=== PATIENT | male | born 1985 | race Two or more races ===

== ENCOUNTER 2017-05-29 14:51 | Inpatient (IN) | payer SELFPAY ==
[~2017-05-29] VITALS: Ht 180.3 cm; Wt 193.5 kg
[2017-05-29 16:50] LABS: Basophils # (auto) 0 uL; Basophils % (auto) 0.3 % (0.0-2.0); Eosinophils # (auto) 0 uL; Eosinophils % (auto) 0.1 % (0.0-7.0); Hemoglobin 13.8 g/dL (13.5-17.5); Lymphocytes % (auto) 18.1 % (10.0-50.0); Mean Corpuscular Hemoglobin 31.5 pg (28.0-32.0); Mean Corpuscular Hgb Conc. 33.5 g/dL (32.0-36.0); Mean Corpuscular Volume 93.8 fL (80.0-100.0); Mean Platelet Volume 8.5 fL (6.9-10.8); Monocytes # (auto) 0.9 uL; Monocytes % (auto) 5.6 % (0.0-12.0); Neutrophils # (auto) 12.4 uL; Neutrophils % (auto) 75.9 % (37.0-80.0); Platelet Count (auto) 219 10^3/uL (140-450); Red Cell Distribution Width 13.7 % (11.8-14.3); White Blood Cell 16.3 10^3/uL (4.4-10.8)
[2017-05-29 16:57] LABS: Albumin 3.6 g/dL (3.4-5.0); BUN/Creatinine Ratio 44.2; Calcium 8.2 mg/dL (8.5-10.1); Potassium 4.6 mmol/L (3.5-5.1)
[2017-05-29 17:00] LABS: Bilirubin, Total 0.5 mg/dL (0.2-1.0); Total Protein 7.5 g/dL (6.4-8.2)
[2017-05-29] MEDS ORDERED: SODIUM CHLORIDE 0.9% 1,000 ML IVB ONE (17:02)
[2017-05-29 17:32] LABS: Magnesium 2.1 mg/dL (1.6-2.6)
[2017-05-29 17:36] LABS: INR 0.96 (0.9-1.15); Partial Thromboplastin Time 24.3 sec (22.64-33.71); Prothrombin Time 10.5 sec (9.37-12.3)
[2017-05-29] MEDS ORDERED: SODIUM CHLORIDE 0.9% 500 ML IV ONE (20:00)
[2017-05-29] MEDS ORDERED: D5W/SOD CHLO 0.9% 1,000 ML IV SCH (20:00)
[2017-05-29 21:40] VITALS: BP 106/65
[2017-05-29 21:41] VITALS: BP 117/86
[2017-05-29] MEDS ORDERED: PANTOPRAZOLE 40 MG/10 ML VIAL IV ONE (21:46)
[2017-05-29 22:00] VITALS: BP 100/61
[2017-05-29] MEDS ORDERED: PANTOPRAZOLE 40 MG/10 ML VIAL IV SCH (22:00)
[2017-05-29] MEDS ORDERED: SODIUM CHLORIDE 0.9% 1,000 ML IV ONE (22:15)
[2017-05-29 22:39] LABS: Basophils # (auto) 0.1 uL; Basophils % (auto) 0.4 % (0.0-2.0); Eosinophils # (auto) 0 uL; Eosinophils % (auto) 0.3 % (0.0-7.0); Hematocrit 33.4 % (41.0-53.0); Hemoglobin 11.3 g/dL (13.5-17.5); Lymphocytes # (auto) 4.4 uL; Lymphocytes % (auto) 30.8 % (10.0-50.0); Mean Corpuscular Hemoglobin 31.6 pg (28.0-32.0); Mean Corpuscular Hgb Conc. 33.8 g/dL (32.0-36.0); Mean Corpuscular Volume 93.4 fL (80.0-100.0); Monocytes % (auto) 6.8 % (0.0-12.0); Neutrophils # (auto) 8.7 uL; Neutrophils % (auto) 61.7 % (37.0-80.0); Nucleated Red Blood Cells % 0.1 %; Platelet Count (auto) 194 10^3/uL (140-450); Red Cell Distribution Width 13.6 % (11.8-14.3); White Blood Cell 14.2 10^3/uL (4.4-10.8)
[2017-05-30] MEDS: SODIUM CHLORIDE 0.9% 1,000 ML IV SCH ×2 (00:54→11:50)
[2017-05-30 05:00] VITALS: BP 93/61
[2017-05-30 07:56] LABS: Basophils # (auto) 0 uL; Basophils % (auto) 0.4 % (0.0-2.0); Eosinophils # (auto) 0.1 uL; Eosinophils % (auto) 0.7 % (0.0-7.0); Hematocrit 30.1 % (41.0-53.0); Hemoglobin 10.4 g/dL (13.5-17.5); Lymphocytes # (auto) 3.3 uL; Mean Corpuscular Hemoglobin 32.3 pg (28.0-32.0); Mean Corpuscular Hgb Conc. 34.7 g/dL (32.0-36.0); Mean Corpuscular Volume 93.1 fL (80.0-100.0); Mean Platelet Volume 7.8 fL (6.9-10.8); Monocytes # (auto) 0.6 uL; Monocytes % (auto) 5.7 % (0.0-12.0); Neutrophils # (auto) 6.1 uL; Neutrophils % (auto) 60.2 % (37.0-80.0); Nucleated Red Blood Cells % 0.1 %; Platelet Count (auto) 175 10^3/uL (140-450); Red Cell Distribution Width 13.5 % (11.8-14.3); White Blood Cell 10.1 10^3/uL (4.4-10.8)
[2017-05-30 08:19] LABS: BUN/Creatinine Ratio 44.6; Calcium 7.5 mg/dL (8.5-10.1); Magnesium 2.1 mg/dL (1.6-2.6); Phosphorus 3.3 mg/dL (2.5-4.90)
[2017-05-30 09:00] VITALS: BP 102/55
[2017-05-30] MEDS ORDERED: PANTOPRAZOLE 40 MG/10 ML VIAL IV SCH (10:45)
[2017-05-30] MEDS: FAMOTIDINE (10MG/ML) 2ML VL IV SCH (10:49)
[2017-05-30] MEDS ORDERED: SODIUM CHLORIDE LOCK 10 ML ONE (11:57)
[2017-05-30] MEDS ORDERED: LIDOCAINE VISCOUS 2% 15ML UD ONE (11:57)
[2017-05-30] MEDS ORDERED: diphenhdrAMINE HCL 50 MG/1 ML VL ONE (11:58)
[2017-05-30] MEDS: MIDAZOLAM HCL 5 MG/ML-1ML VIAL ONE ×2 (12:06→12:10)
[2017-05-30] MEDS: fentaNYL CITRATE 100 MCG/2 ML VL ONE ×2 (12:06→12:10)
[2017-05-30 13:29] LABS: Hemoglobin 9.3 g/dL (13.5-17.5)
[2017-05-30 17:06] VITALS: BP 101/54
[2017-05-30 18:06] LABS: Hematocrit 25.5 % (41.0-53.0); Hemoglobin 8.9 g/dL (13.5-17.5)
[2017-05-30] MEDS: PANTOPRAZOLE 40 MG TAB PO SCH (21:31)
[2017-05-30 22:00] VITALS: BP 95/54
[2017-05-31] MEDS: SODIUM CHLORIDE 0.9% 1,000 ML IV SCH ×2 (02:21→15:59)
[2017-05-31 05:00] VITALS: BP_SYST 130; BP_SYST 95; BP_DIAS 53; BP_DIAS 82
[2017-05-31 07:01] LABS: BUN/Creatinine Ratio 28.6; Bilirubin, Total 0.3 mg/dL (0.2-1.0); Calcium 7.4 mg/dL (8.5-10.1); Potassium 3.8 mmol/L (3.5-5.1); Total Protein 5.6 g/dL (6.4-8.2)
[2017-05-31 08:05] LABS: Basophils # (auto) 0 uL; Basophils % (auto) 0.4 % (0.0-2.0); Eosinophils # (auto) 0.1 uL; Eosinophils % (auto) 0.8 % (0.0-7.0); Hematocrit 27.7 % (41.0-53.0); Hemoglobin 9.5 g/dL (13.5-17.5); Lymphocytes # (auto) 2.9 uL; Lymphocytes % (auto) 37.6 % (10.0-50.0); Mean Corpuscular Hemoglobin 32.4 pg (28.0-32.0); Mean Corpuscular Hgb Conc. 34.3 g/dL (32.0-36.0); Mean Corpuscular Volume 94.4 fL (80.0-100.0); Mean Platelet Volume 7.7 fL (6.9-10.8); Monocytes # (auto) 0.4 uL; Monocytes % (auto) 5.7 % (0.0-12.0); Neutrophils # (auto) 4.4 uL; Neutrophils % (auto) 55.5 % (37.0-80.0); Platelet Count (auto) 172 10^3/uL (140-450); Red Cell Distribution Width 13.3 % (11.8-14.3); White Blood Cell 7.8 10^3/uL (4.4-10.8)
[2017-05-31 09:00] VITALS: BP 108/55
[2017-05-31] MEDS ORDERED: INFLUENZA QUAD 2017-2018 0.5 ML SYRG IM ONE (10:00)
[2017-05-31 13:00] VITALS: BP 110/60
[2017-05-31] MEDS: FAMOTIDINE (10MG/ML) 2ML VL IV SCH (15:59)
[2017-05-31] MEDS: PANTOPRAZOLE 40 MG TAB PO SCH (15:59)
== END 2017-05-31 17:15 | disposition home or self-care (01) | DRG 378 ==
LOC: EDBD 14:51 → ER 15:04 → TELE-WESTW 15:05 → ER 21:29 → WEST WING 21:29
PROVIDERS: ADMIT Nurse Practitioner Family; ATTEND Internal Medicine
PROC: 0DB68ZX Excision of Stomach, Via Natural or Artificial Opening Endoscopic, Diagnostic (ICD-10-PCS; principal; 2017-05-30 12:03)
DX: K29.01 Acute gastritis with bleeding (principal); E44.0 Moderate protein-calorie malnutrition; E66.01 Morbid (severe) obesity due to excess calories; E83.51 Hypocalcemia; Z68.43 Body mass index [BMI] 50.0-59.9, adult; K29.81 Duodenitis with bleeding; F17.200 Nicotine dependence, unspecified, uncomplicated; D64.9 Anemia, unspecified; Z79.899 Other long term (current) drug therapy; Z23 Encounter for immunization
CPT/HCPCS: 36415; 43239; 71010; 74176; 80048; 80053; 82150; 83690; 83735; 84100; 85014; 85018; 85025; 85610; 85730; 94761; 96361; 96374; C9113; J2250; J3490; J7042